=== PATIENT | male | born 1985 | race Caucasian/White ===

== ENCOUNTER 2024-10-08 17:00 | Emergency (ER) | payer MEDICAID ==
[2024-10-08] MEDS: Proparacaine 0.5% Ophth Soln 15 ML Bottle EYERT ONE (17:16)
[2024-10-08] MEDS: Fluorescein 1 MG Ophth Strip EYERT ONE (17:16)
[2024-10-08] MEDS: Gentamicin 0.3% Ophth Soln 5 ML Bottle EYELF ONE (17:40)
== END 2024-10-08 17:44 | disposition home or self-care (01) ==
LOC: DL.ED 17:00
DX: T15.02XA Foreign body in cornea, left eye, initial encounter (principal); W45.8XXA Other foreign body or object entering through skin, initial encounter
CPT/HCPCS: 99282; 99283; A9270; J3490